=== PATIENT | male | born 1970 | race Two or more races ===

== ENCOUNTER 2023-03-22 15:07 | Inpatient (IN) | payer OTHER ==
[~2023-03-22] VITALS: Ht 177.8 cm; Wt 112.3 kg
[2023-03-22] MEDS ORDERED: Prinivil10 MG PO (18:16)
[2023-03-22] MEDS ORDERED: AMLO10 PO (18:20)
--- NOTE | 2023-03-22 19:07 | NUR ---
PT ARRIVED TO THE MEDICAL FLOOR VIA AMBULANCE TRANSPORT DIRECT ADMIT FROM [facility]. PT ABLE TO TRANSFER FROM THE [facility] UNASSITED. THE PT DENIED C/P AND SOB AT THE TIME. DR. RODRÍGUEZ WAS NOTIFIED OF THE PTS ARRIVAL TO THE FLOOR. THE PT WAS ORIENTED TO THE ROOM LAYOUT AND CALL SYSTEM. PTS IS AT THE BEDSIDE. REPORT GIVEN TO MYA LEE. CALL LIGHT IN REACH
[2023-03-22 19:08] VITALS: BP 108/77
[2023-03-22 19:17] LABS: BASOPHILS ABSOLUTE AUTO 0.05 K/mm3 (0.00-0.23); BASOPHILS PERCENT AUTO 1 % (0-2); EOSINOPHILS PERCENT AUTO 5 % (0-6); Hematocrit 46.9 % (37.0-53.0); Hemoglobin 15.6 g/dL (13.5-17.5); IMMATURE GRAN ABSOLUTE AUTO 0.01 K/mm3 (0.00-0.10); IMMATURE GRAN PERCENT AUTO 0 % (0-1); LYMPHOCYTES ABSOLUTE AUTO 1.93 K/mm3 (0.84-5.20); LYMPHOCYTES PERCENT AUTO 24 % (21-46); MONOCYTES PERCENT AUTO 14 % (4-13); Mean Corpuscular HGB 28.9 pg (26.0-34.0); Mean Corpuscular HGB Conc 33.3 g/dL (31.5-36.5); Mean Corpuscular Volume 87 fL (80-100); NEUTROPHILS PERCENT AUTO 57 % (41-73); Platelet Count 255 K/mm3 (150-400); RDW Coefficient Variation 13.2 % (11.7-14.2); RDW Standard Deviation 41.9 fL (35.1-46.3); White Blood Cell Count 8.09 K/mm3 (4.00-11.30)
[2023-03-22 19:30] LABS: Albumin, Blood 3.6 g/dL (3.4-5.0); Albumin/Globulin Ratio 1.1 (0.8-1.8); Bilirubin, Total 0.7 mg/dL (0.1-1.0); Bun/Creatinine Ratio 21.9 (12.0-20.0); Calcium, Blood 8.6 mg/dL (8.5-10.1); Creatinine, Blood 1.05 mg/dL (0.60-1.20); Globulin, Blood 3.2 g/dL (2.2-4.0); Potassium, Blood 3.8 mmol/L (3.5-5.5); Thyroid Stimulating Hormone 1.32 uIU/mL (0.360-4.800); Total Protein, Blood 6.8 g/dL (6.4-8.2)
[2023-03-23 04:51] VITALS: BP 108/80
--- NOTE | 2023-03-23 04:58 | NUR ---
SHIFT SUMMARY: PT A&O X4. PT PLEASANT AND COOPERATIVE WITH CARE. PT DIRECT ADMIT FROM HOSPITAL IN [place] FOR CHEST PAIN. NO C/O CHEST PAIN THIS SHIFT. PT INDEPENDENT IN ROOM. AT BEDSIDE THIS EVENING. PT TO HAVE 2 DAY STRESS TEST COMPLETED STARTING TODAY. PT ALSO TO RECEIVE ECHO. DR. RODRÍGUEZ ARRIVED TO ROOM THIS SHIFT TO DISCUSS PLAN FOR PT. PT HAS BEEN NPO SINCE MIDNIGHT. PT AWARE OF NPO STATUS. IV IN LAC PAINFUL AND THROBBING. REMOVED IV AND NEW IV PLACED IN R. FOREARM BY PERSONAL ATTENDANTLIZZY. PT ON TELE RUNNING AFIB. PT HAD 2.2 SECOND PAUSE THIS SHIFT. WILL PASS ON TO DAY SHIFT RN. CALL LIGHT IN REACH. BED IN LOWEST POSITION. WILL CONTINUE TO MONITOR.
[2023-03-23 05:24] LABS: BASOPHILS ABSOLUTE AUTO 0.05 K/mm3 (0.00-0.23); BASOPHILS PERCENT AUTO 1 % (0-2); EOSINOPHILS ABSOLUTE AUTO 0.53 K/mm3 (0.00-0.68); EOSINOPHILS PERCENT AUTO 8 % (0-6); Hematocrit 45.7 % (37.0-53.0); Hemoglobin 15.5 g/dL (13.5-17.5); IMMATURE GRAN ABSOLUTE AUTO 0.02 K/mm3 (0.00-0.10); IMMATURE GRAN PERCENT AUTO 0 % (0-1); LYMPHOCYTES ABSOLUTE AUTO 1.86 K/mm3 (0.84-5.20); LYMPHOCYTES PERCENT AUTO 29 % (21-46); MONOCYTES ABSOLUTE AUTO 1.01 K/mm3 (0.16-1.47); MONOCYTES PERCENT AUTO 16 % (4-13); Mean Corpuscular HGB 29.2 pg (26.0-34.0); Mean Corpuscular HGB Conc 33.9 g/dL (31.5-36.5); Mean Corpuscular Volume 86 fL (80-100); Mean Platelet Volume 11.6 fL (9.1-12.4); NEUTROPHILS ABSOLUTE AUTO 2.97 K/mm3 (1.96-9.15); NEUTROPHILS PERCENT AUTO 46 % (41-73); Platelet Count 254 K/mm3 (150-400); RDW Coefficient Variation 13.4 % (11.7-14.2); RDW Standard Deviation 42.1 fL (35.1-46.3); White Blood Cell Count 6.44 K/mm3 (4.00-11.30)
[2023-03-23 06:02] LABS: Alanine Aminotransfer (ALT/SGP 56 U/L (12-78); Albumin, Blood 3.4 g/dL (3.4-5.0); Albumin/Globulin Ratio 1.2 (0.8-1.8); Alk Phos 63 U/L (50-136); Anion Gap 5 mmol/L (6-16); Aspartate Aminotrans (AST/SGOT 40 U/L (12-37); Bilirubin, Total 0.7 mg/dL (0.1-1.0); Blood Urea Nitrogen 22 mg/dL (8-24); Bun/Creatinine Ratio 22.5 (12.0-20.0); CHOL/HDL RATIO 5.2; CO2, Blood 26 mmol/L (21-32); Calcium, Blood 8.2 mg/dL (8.5-10.1); Chloride, Blood 113 mmol/L (98-108); Cholesterol 129 mg/dL (50-200); Creatinine, Blood 0.98 mg/dL (0.60-1.20); Globulin, Blood 2.8 g/dL (2.2-4.0); Glomerular Filtration Rate 93 (60-); Glucose, Blood 115 mg/dL (70-99); HDL Cholesterol 25 mg/dL (>39); LDL/HDL RATIO 2.6; Low Density Lipoprotein Chol 66 mg/dL (0-110); Magnesium, Blood 2.4 mg/dL (1.6-2.4); Potassium, Blood 3.9 mmol/L (3.5-5.5); Sodium, Blood 144 mmol/L (136-145); Total Protein, Blood 6.2 g/dL (6.4-8.2); Triglycerides 191 mg/dL (30-160); Very Low Density Lipoprot Chol 38 mg/dL (6-32)
--- NOTE | 2023-03-23 06:08 | NUR ---
RECEIVED VOCERA CALL FROM TELE STATING PT WAS TACHY IN 180'S AND TRENDING DOWN TO 130'S. WENT IN TO ASSESS PT AND STATING HE WAS JUST UP TO RESTROOM. NO C/O CHEST PAIN AT THIS TIME. WILL CONTINUE TO MONITOR.
[2023-03-23 07:24] VITALS: BP 105/64
[2023-03-23 15:09] VITALS: BP 106/83
--- NOTE | 2023-03-23 17:38 | NUR ---
PT IS A/OX4, PLEASANT AND COOPERATIVE. PT IS UP IND IN THE ROOM. THE PTS HR IS ELEVATED INTO THE 140'S WITH ACTIVITY, OTHERWISE IN THE 80'S AT REST. PT WAS MEDICATED FOR H/A X1 THIS AFTERNOON. THE PT COMPLETED THE RESTING PORTION OF A STRESS TEST THIS AM. THE 2ND PART OF THE STRESS TEST IS SCHEDULED FOR TOMORROW AROUND 1300. PT HAS DENIED CHEST PAIN SO FAR TODAY. PTS FAMILY IS AT THE BEDSIDE. CALL LIGHT IN REACH. WILL CONTINUE TO MONITOR AND ASSESS FOR CHANGES
[2023-03-23 21:13] VITALS: BP 122/90
[2023-03-23] MEDS ORDERED: DEPO-TESTO200 MG/18 IM (22:17)
[2023-03-24 04:57] VITALS: BP 102/84
--- NOTE | 2023-03-24 06:05 | NUR ---
SHIFT SUMMARY NO ACUTE CHANGES. PT ASKED TO SHOWER AT BEGINING OF SHIFT. PT WAS ABLE TO SHOWER INDPENDENTLY WITH 'S ASSISTANCE. RT IN TO SET UP CPAP FOR PT. NO C/O PAIN. PT SLEPT T/O NIGHT WITHOUT CALLING. CHECKED ON PT T/O NIGHT AND PT APPEARED TO BE TOLERATING CPAP. BED IN LOWEST POSITION AND CALL LIGHT IN REACH.
[2023-03-24 07:11] VITALS: BP 102/89
--- NOTE | 2023-03-24 14:31 | NUR ---
LEXISCAN 0.4 MG ADMINISTERED IV DURING STRESS TEST.
[2023-03-24 16:02] VITALS: BP 131/95
[2023-03-24 16:04] VITALS: BP 126/101
[2023-03-24 17:53] LABS: International Normalized Ratio 1.04; Prothrombin Time Results 10.9 Sec (9.7-11.5)
--- NOTE | 2023-03-24 18:44 | NUR ---
SHIFT SUMMARY PT AxOx4. PLEASANT AND COOPERATIVE WITH CARE. PT HAD 2ND PART OF STRESS TEST TODAY. CARDIOLOGY CONSULTED TODAY WELL. PT IS ON TELE, RUNNING AFIB 80-100'S. PER UNCRATER, PT HAD A COUPLE EPISODES OF VTACH REACHING 160-180BPM. PT DENIES CP. PT STATED HE WAS "JUST FEELING STRESSED DEALING WITH BILLS AND WORK" AT THESE TIMES. PT REASSURED AND ENCOURAGED TO RELAX MUCH POSSIBLE. PT STARTED ON BETA BRUCE PER PROVIDER'S ORDER. HEPARIN DRIP ORDERED AND ECHOCARDIOGRAM SCHEDULED FOR TOMORROW. PT NOTIFIED HE WILL BE NPO AFTER MIDNIGHT. PT VERBALIZES UNDERSTANDING AND DENIES ANY FURTHER QUESTIONS OR NEEDS AT THIS TIME. VITALS REVIEWED. CALL LIGHT IN REACH.
[2023-03-24 19:06] VITALS: BP 125/82
--- NOTE | 2023-03-24 22:57 | NUR ---
ASSESSMENT DONE EARLIER. WILL BE NPO AT 0000 FOR PROCEDURE IN THE AM. VOICED UNDERSTANDING. UP AD MORALES. HEPARIN DRIP STARTED EARLIER - SEE MAR FOR DETAILS. CALL LIGHT IN REACH
[2023-03-25] VITALS (9 sets, daily range): BP systolic 97–119; BP diastolic 69–93
[2023-03-25 02:12] LABS: Bun/Creatinine Ratio 12.8 (12.0-20.0); Calcium, Blood 8.7 mg/dL (8.5-10.1); Creatinine, Blood 0.94 mg/dL (0.60-1.20); Magnesium, Blood 2.2 mg/dL (1.6-2.4); Potassium, Blood 4.1 mmol/L (3.5-5.5)
--- NOTE | 2023-03-25 04:48 | NUR ---
WAGON DRILL OPERATOR SUMMARY VSS. WAS ADMITTED FOR CHEST PAIN AND AFIB. DENIES CHEST PAIN. MED TELE ST IN THE 180'S AT INTERVALS, PT VOICED HAVING ANXIETY DEALING WITH ISSUES. PLACED ON HEPARIN DRIP AND ADJUSTED TO APTT NEEDS. NPO SINCE MIDNIGHT FOR PROCEDURE IN THE AM (ANGIO SCHEDULED AT 0800). UP AD MORALES. HAS BEEN RESTING QUIETLY ON BIPAP. LATEST PULSE 63. CALL LIGHT IN REACH. NO NOTED S/S ACUTE DISTRESS. WILL CONTINUE TO MONITOR
--- NOTE | 2023-03-25 09:50 | NUR ---
OBTAINED BEDSIDE REPORT FROM [facility] RN. PATIENT ALERT, ORIENTED, SITTING UP IN BED. DENIES SOB OR CP. VSS. R RADIAL SITE WITH TR BAND IN PLACE, MODERATE SWELLING NOTED BUT SOFT. PATIENT REPORTED FULL SENSATION TO R HAND. AM MEDS GIVEN. SANDWICH AND DRINK PROVIDED.
--- NOTE | 2023-03-25 10:57 | NUR ---
3 ML DEFLATED FROM TR BAND, SITE WNL, SOFT.
--- NOTE | 2023-03-25 11:12 | NUR ---
TR BAND DEFLATED ANOTHER 3 ML. SITE WNL. SOFT.
--- NOTE | 2023-03-25 11:36 | NUR ---
TR BAND COMPLETELY DEFLATED AT THIS TIME. STILL IN PLACE TO RIGHT WRIST. WNL. SOFT.
--- NOTE | 2023-03-25 12:48 | NUR ---
TR BAND REMOVED. TRANSPARENT TEGADERM IN PLACE. SITE WNL. SOFT, MOD SWELLING REDUCED. NO HEMATOMA NOTED. ARM BOARD IN PLACE AND SLING IN PLACE. SPOKE WITH DR PENDLETON ON PHONE. ENTRESTO WAS HELD THIS AM DUE TO LOW SBP. ORDERS GIVEN TO DC ENTRESTO AND START LOSARTAN 25 MG BID. OKAY FOR PATIENT TO DISCHARGE 4 HOURS AFTER FIRST DOSE OF LOSARTAN IF SBP STABLE. DR BLOCK AWARE.
--- NOTE | 2023-03-25 15:29 | NUR ---
LATE ENTRY; PT AWAKE DURING BS SHIFT REPORT, A&O, UP INDEPENDENTLY IN RM AND TO BTHRM. DENIED CP, BUT REPORTED SOME CHEST PRESSURE. CARDIOLOGY IN TO SEE PT PRIOR TO START OF SHIFT. PT NPO, SINCE MN, FOR ANGIO. HEPARIN DRIP INFUSING PER EMAR; RATE VERIFIED. 0800 CONTINUOUS STILL OPERATOR HERE TO TAKE PT FOR ANGIO; HEPARIN DRIP STOPPED BY CONTINUOUS STILL OPERATOR TEAM. PT TAKEN DOWN VIA W/C. AT BS AND REMAINED IN RM, LATER TAKING ALL OF PT BELONGINGS TO PCU 3.
[2023-03-25] MEDS ORDERED: ASPI81CH PO (15:53)
[2023-03-25] MEDS ORDERED: ATOR40TA PO (15:53)
[2023-03-25] MEDS ORDERED: LOSA25 PO (15:54)
[2023-03-25] MEDS ORDERED: JARDIANCE10 MG PO (15:54)
[2023-03-25] MEDS ORDERED: METO50ER PO (15:55)
[2023-03-25] MEDS ORDERED: SPIR25 PO (15:55)
[2023-03-25] MEDS ORDERED: ELIQUIS5 M2 PO (15:56)
--- NOTE | 2023-03-25 17:22 | NUR ---
DISCHARGE SUMMARY TRANSFER TO UNIT FROM MEDICAL FLOOR VIA MANAGER GLOBAL. S/P POST ANGIO WITHOUT INTERVENTION AND R RADIAL SITE. ALERT AND ORIENTED. R RADIAL SITE RECOVERED WITHOUT INCIDENT. PATIENT SBP REMAINED STABLE ON NEW BP MEDS. TOLERATING CARDIAC DIET AND LIQUIDS. VOIDING WELL. DISCHARGE ORDERS GIVEN. DISCHARGE MEDS FAXED TO PHARMACY IN [place]. DISCHARGE EDUCATION GIVEN ON NEW MEDS, R RADIAL SITE CARE, AND FOLLOW UP APPTS WITH PCP AND CARDIOLOGY. IV DC'D WNL. PATIENT LEFT UNIT AT 1645 VIA WHEELCHAIR WITH FAMILY FOR HOME.
== END 2023-03-25 16:44 | disposition home or self-care (01) | DRG 287 ==
LOC: MEDS 15:07 → PCU 03-25 08:45
PROVIDERS: Internal Medicine Cardiovascular Disease; ADMIT Student in an Organized Health Care Education/Training Program
PROC: 4A023N7 Measurement of Cardiac Sampling and Pressure, Left Heart, Percutaneous Approach (ICD-10-PCS; principal; 2023-03-25)
PROC: B2111ZZ Fluoroscopy of Multiple Coronary Arteries using Low Osmolar Contrast (ICD-10-PCS; 2023-03-25)
PROC: B2151ZZ Fluoroscopy of Left Heart using Low Osmolar Contrast (ICD-10-PCS; 2023-03-25)
DX: I48.91 Unspecified atrial fibrillation (principal); I10 Essential (primary) hypertension; I42.0 Dilated cardiomyopathy; E88.81 Metabolic syndrome and other insulin resistance; G47.33 Obstructive sleep apnea (adult) (pediatric); E55.9 Vitamin D deficiency, unspecified; M51.36 Other intervertebral disc degeneration, lumbar region; M51.34 Other intervertebral disc degeneration, thoracic region; G89.29 Other chronic pain; M54.50 Low back pain, unspecified; I25.10 Atherosclerotic heart disease of native coronary artery without angina pectoris; R09.02 Hypoxemia; F12.10 Cannabis abuse, uncomplicated; F10.10 Alcohol abuse, uncomplicated; I42.8 Other cardiomyopathies; I95.9 Hypotension, unspecified; E78.00 Pure hypercholesterolemia, unspecified; Z87.891 Personal history of nicotine dependence; Z99.89 Dependence on other enabling machines and devices; Z79.01 Long term (current) use of anticoagulants; Z79.82 Long term (current) use of aspirin; Z79.899 Other long term (current) drug therapy
CPT/HCPCS: 36415; 71045; 78452; 80048; 80053; 80061; 83735; 84443; 84484; 85025; 85610; 85730; 86850; 86900; 86901; 93005; 93010; 93017; 93458; 94660; 94762; 99152; 99153; A9270; A9500; C1769; C1887; C1894; C8929; J0280; J1644; J1650; J2250; J2785; J3010; J7030; J7050; Q9957; Q9967

== ENCOUNTER 2023-05-06 06:20 | Day surgery (SDC) | payer OTHER ==
[2023-05-06] VITALS (13 sets, daily range): BP systolic 95–112; BP diastolic 66–86
[~2023-05-06 06:20] MED LIST: AMLO10 PO; ASPI81CH PO; ATOR40TA PO; Amiodarone HCl200 MG PO; DEPO-TESTO200 MG/18 IM; ELIQUIS5 M2 PO; JARDIANCE10 MG PO; LOSA25 PO; METO50ER PO; Prinivil10 MG PO; SPIR25 PO
--- NOTE | 2023-05-06 08:58 | NUR ---
PT GIVEN DC INSTRUCTIONS AND VERBALIZED UNDERSTANDING. IV OUT. PT CHANGED INTO CLOTHES. PT TAKEN TO PARKING LOT VIA WC. SON TO DRIVE PT HOME.
== END 2023-05-06 09:03 | disposition home or self-care (01) ==
LOC: MHTC 06:20
DX: I48.19 Other persistent atrial fibrillation (principal); I42.0 Dilated cardiomyopathy; G47.33 Obstructive sleep apnea (adult) (pediatric); Z79.01 Long term (current) use of anticoagulants; Z79.82 Long term (current) use of aspirin; Z79.899 Other long term (current) drug therapy
CPT/HCPCS: 92960; 93005; 93010; J2001; J2250; J2704; J7030